=== PATIENT | male | born 1970 | race Caucasian/White ===

== ENCOUNTER → 2019-05-01 16:07 | Outpatient (CLI) | payer OTHER | END | disposition home or self-care (01) | LOC: LAB 16:07 | DX: J11.1 Influenza due to unidentified influenza virus with other respiratory manifestations (principal) ==

== ENCOUNTER 2023-02-15 09:21 | Outpatient (CLI) | payer OTHER | END 2023-02-15 09:37 | disposition home or self-care (01) | LOC: RAD 09:21 | PROVIDERS: ATTEND Specialist | DX: N19 Unspecified kidney failure (principal); D23.9 Other benign neoplasm of skin, unspecified; L72.3 Sebaceous cyst; J45.998 Other asthma ==

== ENCOUNTER 2023-06-14 08:29 | Outpatient (CLI) | payer OTHER | END 2023-06-14 08:31 | disposition home or self-care (01) | LOC: SONOGRAMA 08:29 | PROVIDERS: ATTEND Specialist | DX: E11.21 Type 2 diabetes mellitus with diabetic nephropathy (principal) ==

== ENCOUNTER 2023-06-19 06:56 | Day surgery (SDC) | payer OTHER ==
[2023-06-19] MEDS ORDERED: DIPHENHYDRAMINE HCL 50 MG/ML VIAL 1ML IV ONE ×2 (09:15→10:00)
[2023-06-19] MEDS ORDERED: FLUMAZENIL 0.5 MG/5ML ML IV STA (09:55)
[2023-06-19] MEDS ORDERED: fentaNYL CITRATE 50 MCG/ML AMPUL IV PUSH ONE (10:00)
[2023-06-19] MEDS ORDERED: MIDAZOLAM HCL 2 MG/2 ML VIAL IV ONE (10:00)
== END 2023-06-19 12:45 | disposition home or self-care (01) ==
LOC: AMB-ENDOS 06:56
PROVIDERS: ATTEND Colon & Rectal Surgery
DX: Z86.010 Personal history of colon polyps (principal); K64.0 First degree hemorrhoids

== ENCOUNTER 2025-01-28 08:12 | Outpatient (CLI) | payer OTHER | END 2025-01-28 08:14 | disposition home or self-care (01) | LOC: SONOGRAMA 08:12 | PROVIDERS: ATTEND Internal Medicine Nephrology | DX: N18.2 Chronic kidney disease, stage 2 (mild) (principal); N40.0 Benign prostatic hyperplasia without lower urinary tract symptoms ==